=== PATIENT | female | born 1965 | race Asian ===

== ENCOUNTER 2017-12-13 13:21 | Outpatient (CLI) | payer OTHER ==
--- NOTE | 2017-12-13 17:04 | MMO ---
BILATERAL DIGITAL SCREENING MAMMOGRAMS: HISTORY: This 52-year-old female presents for digital screening mammography. COMPARISON: 10/04/16, 09/14/15, 07/21/14, 07/02/13. This patient's mammogram is interpreted with the assistance of computer-aided detection. FINDINGS: Scattered areas of fibroglandular density are noted throughout both breasts. There is no direct or i ndirect evidence of malignancy in either breast. IMPRESSION: BI-RADS category 1, negative. Continued routine screening. BIRADS 1: Negative Routine annual screening mammography (for women over age 40) POS: [facility]
== END 2017-12-13 13:22 | disposition home or self-care (01) ==
LOC: SCSMAMMO 13:21
PROVIDERS: ATTEND Obstetrics & Gynecology
DX: Z12.31 Encounter for screening mammogram for malignant neoplasm of breast (principal)
CPT/HCPCS: 77067

== ENCOUNTER 2018-10-02 07:42 | Outpatient (CLI) | payer OTHER ==
--- NOTE | 2018-10-02 10:37 | ULT ---
HEPATIC ULTRASOUND WITH DUPLEX EVALUATION: INDICATIONS: History of hepatitis-B. COMPARISON: Prior study dated 04/11/2017. TECHNIQUE: Coles-scale, color Doppler, and duplex ultrasound images were obtained of the liver, spleen, pancreas, and hepatic vasculature. FINDINGS: The liver measures 13.6 cm. No focal hepatic lesion is evident. The spleen measures 7.8 cm in lengt h. The gallbladder is surgically absent. The common bile duct measures 4.6 mm. There is appropriat e hepatopetal flow seen within the hepatic vasculature. No free fluid is evident. IMPRESSION: Unremarkable hepatic ultrasound with duplex evaluation. POS: [facility]
== END 2018-10-02 07:43 | disposition home or self-care (01) ==
LOC: SCSULT 07:42
PROVIDERS: ATTEND Internal Medicine Gastroenterology
DX: B18.1 Chronic viral hepatitis B without delta-agent (principal); K59.00 Constipation, unspecified
CPT/HCPCS: 76705

== ENCOUNTER 2018-12-26 09:10 | Outpatient (CLI) | payer OTHER ==
--- NOTE | 2018-12-26 11:10 | MMO ---
BILATERAL SCREENING MAMMOGRAM: History: 53-year-old female. Routine screening mammography. Comparison: 12-13-17, 10-04-16, 09-14-15 Technique: CC and MLO views of both breasts are submitted for interpretation. This study is interpret ed with the assistance of computer aided detection. FINDINGS: Breasts are composed of scattered fibroglandular tissue. Bilaterally, no suspicious dominant mass, ar chitectural distortion or suspicious calcifications. IMPRESSION: BIRADS category 1 - negative exam. Recommend annual mammogram. POS: [facility]
== END 2018-12-26 09:11 | disposition home or self-care (01) ==
LOC: SCSMAMMO 09:10
PROVIDERS: ATTEND Obstetrics & Gynecology
DX: Z12.31 Encounter for screening mammogram for malignant neoplasm of breast (principal)
CPT/HCPCS: 77067

== ENCOUNTER 2019-07-18 08:53 | Outpatient (CLI) | payer OTHER ==
--- NOTE | 2019-07-18 10:30 | ULT ---
HEPATIC ULTRASOUND WITH DOPPLER: INDICATIONS: Hepatitis B. TECHNIQUE: The liver was evaluated with ultrasound and Doppler. Color Doppler with spectral analysis was perfor med on the hepatic vessels. FINDINGS: Coles-scale images show mild heterogeneity of the liver. No focal mass identified. The patient is st atus post cholecystectomy. The common duct is normal in caliber, measured at 3 mm. Color Doppler and spectral analysis demonstrate normal blood flow in the portal veins, hepatis veins, hepatic artery, splenic veins, and splenic artery. The pancreas is obscured. The kidneys are not imaged. The visualized abdominal aorta appears of nor mal caliber. IMPRESSION: The liver is mildly heterogeneous with no focal lesion identified. All hepatic vessels show normal h epatopetal blood flow. POS: [facility]
== END 2019-07-18 08:54 | disposition home or self-care (01) ==
LOC: SCSULT 08:53
PROVIDERS: ATTEND Internal Medicine Gastroenterology
DX: B18.1 Chronic viral hepatitis B without delta-agent (principal)
CPT/HCPCS: 76705